=== PATIENT | male | born 1975 | race Caucasian/White ===

== ENCOUNTER 2020-08-24 06:54 | Day surgery (SDC) | payer OTHER ==
[2020-08-21 16:38] LABS: ALBUMIN 2.6 g/dL (3.4-5.0); ANION GAP 6 mmol/L (5-15); CALCIUM 8.1 mg/dL (8.5-10.1); CHLORIDE 111 mmol/L (98-107)
[2020-08-21 16:41] LABS: ALANINE AMINOTRANSFERASE 79 U/L (12-78); ALKALINE PHOSPHATASE 217 U/L (45-117); BILIRUBIN,TOTAL 3.2 mg/dL (0.2-1.0); CREATININE 0.82 mg/dL (0.7-1.3); TOTAL PROTEIN 6.9 g/dL (6.4-8.2)
[~2020-08-24] VITALS: Ht 152.4 cm; Wt 73.8 kg
[~2020-08-24 06:54] MED LIST: FERR324T5 PO; LISI2.5T PO; METF500T17 PO
[2020-08-24] MEDS ORDERED: CHLORHEXIDINE 15 ML UDC MM STA (07:18)
[2020-08-24] MEDS ORDERED: LACTATED RINGERS 1,000 ML IV SCH (07:30)
[2020-08-24] MEDS ORDERED: CHLORHEXIDINE 15 ML UDC ONE (07:36)
[2020-08-24 07:37] VITALS: BP 138/92
[2020-08-24] MEDS ORDERED: PLEASE ENTER ALLERGIES MC SCH (08:00)
[2020-08-24] MEDS ORDERED: MAGNESIUM SULFATE 1 GM/2 ML ONE (08:26)
[2020-08-24] MEDS ORDERED: LIDOCAINE 1%, 20ML ONE ×2 (08:26→13:53)
[2020-08-24] MEDS ORDERED: GLYCOPYRROLATE 0.2MG/1ML, 5ML ONE (08:29)
[2020-08-24] MEDS ORDERED: LIDOCAINE-MPF 2% ,5ML ONE (08:29)
[2020-08-24] MEDS ORDERED: PROPOFOL 10 MG/ML, 20ML ONE (08:29)
[2020-08-24] MEDS ORDERED: MIDAZOLAM 1 MG/ML, 2ML ONE (08:29)
[2020-08-24] MEDS ORDERED: DEXAMETHASONE 4 MG/ML, 1ML ONE (08:29)
[2020-08-24] MEDS ORDERED: ROCURONIUM 10 MG/ML,10ML ONE (08:29)
[2020-08-24] MEDS ORDERED: FENTANYL PF 100 MCG/2ML ONE (08:29)
[2020-08-24] MEDS ORDERED: METHOCARBAMOL 1,000 MG in DEXTROSE 5% 100 ML IV PRN (09:00)
[2020-08-24] MEDS ORDERED: hydrALAzine 20 MG/ML, 1ML IV PRN (09:00)
[2020-08-24] MEDS ORDERED: MEPERIDINE/PF 25MG/0.5ML IVPush PRN (09:00)
[2020-08-24] MEDS ORDERED: DIAZEPAM 5 MG/ML, 2ML IVPush PRN (09:00)
[2020-08-24] MEDS ORDERED: HYDROmorphone 1 MG/ML, 1ML INJ IVPush PRN (09:00)
[2020-08-24] MEDS ORDERED: LABETALOL 5MG/ML, 20ML IV PRN (09:00)
[2020-08-24] MEDS ORDERED: FENTANYL PF 100 MCG/2ML IV PRN (09:00)
[2020-08-24] MEDS ORDERED: HALOPERIDOL 5 MG/ML IV PRN (09:00)
[2020-08-24] MEDS ORDERED: EPHEDRINE 50 MG/ML, 1ML IVPush PRN (09:00)
[2020-08-24] MEDS ORDERED: ONDANSETRON 2MG/ML, 2ML IVPush PRN (09:00)
[2020-08-24] MEDS ORDERED: LORazepam 2 MG/ML, 1ML IVPush PRN (09:00)
[2020-08-24] MEDS ORDERED: MIDAZOLAM 1 MG/ML, 2ML IV PRN (09:00)
[2020-08-24] MEDS ORDERED: EPHEDRINE 50 MG/ML, 1ML IM PRN (09:00)
[2020-08-24] MEDS ORDERED: OXYcodone 5 MG/5 ML ORAL.SOL UDC PO PRN (09:00)
[2020-08-24] MEDS ORDERED: ALBUTEROL/IPRATROPIUM 2.5MG/0.5MG, 3 ML NPPB PRN (09:00)
[2020-08-24] MEDS ORDERED: METOCLOPRAMIDE 5 MG/ML, 2ML IVPush PRN (09:00)
[2020-08-24] MEDS ORDERED: DIPHENHYDRAMINE 50 MG/ML, 1ML IVPush PRN (09:00)
[2020-08-24] MEDS ORDERED: HYDROcodone/APAP 7.5-325MG/15ML UDC PO PRN (09:00)
[2020-08-24] MEDS ORDERED: OXYcodone 5 MG/5 ML ORAL.SOL UDC ONE (09:47)
== END 2020-08-24 11:55 | disposition home or self-care (01) ==
LOC: OUT 06:54 → EDSTATUS 09:00 → OUT 11:55
PROVIDERS: ATTEND Internal Medicine Gastroenterology
DX: K74.69 Other cirrhosis of liver (principal); I85.10 Secondary esophageal varices without bleeding; D3A.8 Other benign neuroendocrine tumors; B19.20 Unspecified viral hepatitis C without hepatic coma; K21.9 Gastro-esophageal reflux disease without esophagitis; K76.6 Portal hypertension; K29.50 Unspecified chronic gastritis without bleeding; R16.2 Hepatomegaly with splenomegaly, not elsewhere classified; I10 Essential (primary) hypertension; E11.9 Type 2 diabetes mellitus without complications; Z72.89 Other problems related to lifestyle; Z79.899 Other long term (current) drug therapy; Z20.828 Contact with and (suspected) exposure to other viral communicable diseases; Z83.3 Family history of diabetes mellitus
CPT/HCPCS: 36415; 43239; 43244; 80053; 82962; 87635; 88305; 93005; J1100; J2250; J2704; J3010; J3475; J7120